=== PATIENT | female | born 1935 | race Caucasian/White ===

== ENCOUNTER 2016-09-12 06:01 | Inpatient (IN) | payer OTHER ==
[2016-08-27 10:19] LABS: % IMMATURE GRANULYOCYTES 0.4 % (0.0-1.1); ABSOLUTE IMMATURE GRANULOCYTES 0.03 10^3/uL (0.00-0.10); ADD DIFF? NO; ADD MORPH? NO; ADD SCAN? NO; ATYPICAL LYMPHOCYTE FLAG 10 (0-99); FRAGMENT RBC FLAG 0 (0-99); HEMATOCRIT 49.3 % (38.0-47.0); LEFT SHIFT FLG 0 (0-99); LIPEMIA HEMOLYSIS FLAG 90 (0-99); MEAN CELL HEMOGLOBIN 31.1 pg (27.9-34.1); MEAN CELL HEMOGLOBIN CONCENTR. 34.5 g/dL (32.4-36.7); MEAN CELL VOLUME 90.1 fL (81.5-99.8); MEAN PLATELET VOLUME 9.4 fL (8.7-11.7); PLATELET CLUMPS FLAG 0 (0-99); PLATELET COUNT 253 10^3/uL (150-400); RED BLOOD CELL COUNT 5.47 10^6/uL (4.18-5.33); RED CELL DISTRIBUTION WIDTH 12.5 % (11.5-15.2)
[2016-08-27 10:45] LABS: ANION GAP 11 mEq/L (8-16); CALCIUM 10.4 mg/dL (8.5-10.4); CARBON DIOXIDE 29 mEq/l (22-31); CHLORIDE 102 mEq/L (97-110); CREATININE 0.8 mg/dL (0.6-1.0); GLOMERULAR FILTRATION RATE > 60; GLUCOSE 114 mg/dL (70-100); POTASSIUM 4.5 mEq/L (3.5-5.2); SODIUM 142 mEq/L (134-144)
[~2016-09-12 06:01] MED LIST: ACETAMINOPHEN 325 MG TAB PO ONE; CEFAZOLIN 2 GM/DEXTR 100 ML IV ONE; CHLORHEXIDINE GLUC HIBICLENS 118 ML BTL TP ONE; DEXAMETHASONE 4 MG/ML VIAL IVP ONE; FAMOTIDINE 20 MG TAB PO ONE; ROPI/epiNEPH/KETOROLAC JOINT COCKTAIL IU ONE; TRANEXAMIC ACID 3,000 MG in NS 50 ML IRR ONE
[2016-09-12] MEDS ORDERED: FAMOTIDINE 20 MG TAB ONE (06:22)
[2016-09-12] MEDS ORDERED: DEXAMETHASONE 4 MG/ML VIAL ONE (06:22)
[2016-09-12] MEDS ORDERED: CEFAZOLIN 2 GM/DEXTROSE/100 ML BAG IV ONE (06:23)
[2016-09-12] MEDS ORDERED: ACETAMINOPHEN 325 MG TAB ONE (06:23)
[2016-09-12] MEDS ORDERED: LIDOCAINE 1% 5 ML SDV ONE (06:23)
[2016-09-12] MEDS ORDERED: LR 1,000 ML IV ONE (06:40)
[2016-09-12] MEDS ORDERED: LIDOCAINE 1% 5 ML SDV ID PRN (06:40)
[2016-09-12] MEDS ORDERED: TRANEXAMIC ACID 3,000 MG/50 ML BAG IRR ONE (07:08)
[2016-09-12] MEDS ORDERED: VANCOMYCIN 1 GM VIAL IV ONE (07:08)
[2016-09-12] MEDS ORDERED: fentaNYL 100 MCG/2 ML INJ ONE (07:24)
[2016-09-12] MEDS ORDERED: PROPOFOL/EMULSION 500 MG/50 ML BOTTLE IV ONE (07:24)
[2016-09-12] MEDS ORDERED: ONDANSETRON 4 MG/2 ML VIAL ONE (07:27)
[2016-09-12] MEDS ORDERED: METOCLOPRAMIDE 10 MG/2 ML VIAL ONE (07:27)
[2016-09-12] MEDS ORDERED: MIDAZOLAM 2 MG/2 ML VIAL ONE (07:55)
[2016-09-12] MEDS ORDERED: PHARMACY PAIN CONSULT 1 EA MISC PRN (09:32)
[2016-09-12] MEDS ORDERED: ONDANSETRON 4 MG/2 ML VIAL IVP PRN (09:32)
[2016-09-12] MEDS ORDERED: ONDANSETRON DISINTEGRATING 4 MG TAB PO PRN (09:32)
[2016-09-12] MEDS ORDERED: PROMETHAZINE HCL 25 MG SUPPR PR PRN (09:32)
[2016-09-12] MEDS ORDERED: BISACODYL 10 MG SUPP PR PRN (09:32)
[2016-09-12] MEDS ORDERED: LACTULOSE 20 GM/30 ML UDCUP PO PRN (09:32)
[2016-09-12] MEDS ORDERED: METOCLOPRAMIDE 10 MG/2 ML VIAL IVP PRN (09:32)
[2016-09-12] MEDS ORDERED: CYCLOBENZAPRINE 10 MG TAB PO PRN (09:32)
[2016-09-12] MEDS ORDERED: MAGNESIUM HYDROXIDE 30 ML UDCUP PO PRN (09:32)
[2016-09-12] MEDS ORDERED: POLYETHYLENE GLYCOL 3350 17 GM PKT PO PRN (09:32)
[2016-09-12] MEDS ORDERED: DIPHENOXYLATE/ATROPINE LOMOTIL 1 TAB PO PRN (09:32)
[2016-09-12] MEDS ORDERED: diphenhydrAMINE 25 MG CAP PO PRN (09:32)
[2016-09-12] MEDS ORDERED: TEMAZEPAM 15 MG CAP PO PRN (09:32)
--- NOTE | 2016-09-12 09:32 | POSTOPPROG ---
Post Op Note Date of Operation: 09/12/16 Surgeon: Pernell Carpenter Application Support Administrator: shani carpenter Anesthesiologist: dr. landa Anesthesia: Spinal, Other (Specify) Pre-op Diagnosis: left knee OA Post-op Diagnosis: same Indication: left knee pain due to OA that failed conservative measures Procedure: L TKA Findings: severe knee OA Inf/Abcess present in the surg proc area at time of surgery?: No EBL: 50-100
[2016-09-12] MEDS ORDERED: ROPIVACAINE HCL 150 MG/30 ML INJ ONE (09:45)
[2016-09-12] MEDS ORDERED: LR 1,000 ML IV SCH (10:00)
[2016-09-12] MEDS: HYDROCODONE/APAP 10/325 TAB PO PRN ×2 (12:52→20:12)
[2016-09-12] MEDS ORDERED: hydrALAZINE 20 MG/ML VIAL IVP PRN (14:19)
--- NOTE | 2016-09-12 14:19 | SOAPPROG ---
HUSSAIN Progress Note Assessment/Plan: Assessment:Bp 160/100 when I assessed. pain needs being met Plan:hydralazine 10 mg iv once if bP>180/110 for more than 30 minutes 09/12/16 14:16 Objective: Vital Signs Temp Pulse Resp BP Pulse Ox 35.9 C L 72 18 152/92 H 96 09/12/16 14:00 09/12/16 14:00 09/12/16 14:00 09/12/16 14:00 09/12/16 14:00 Laboratory Results 08/27/16 09:56 08/27/16 09:56 09/11/16 09/12/16 09/13/16 05:59 05:59 05:59 Intake Total 835 Output Total 30 Balance 805 - Pending Discharge Pending Discharge Within 24 Hours: No Pending Discharge Within 48 Hours: No ICD10 Worksheet Patient Problems: Problems Problem Status Onset Osteoarthritis, knee Acute - ICD10 Problem Qualifiers (1) Osteoarthritis, knee Qualifiers: Osteoarthritis type: O Laterality: L
[2016-09-12] MEDS: ceFAZolin 2 GM/DEXTROSE 100 ML IV SCH ×2 (16:46→23:50)
[2016-09-12] MEDS: WARFARIN SODIUM 5 MG TAB PO SCH (16:46)
[2016-09-12] MEDS: FAMOTIDINE 20 MG TAB PO SCH (20:13)
[2016-09-12] MEDS: ATORVASTATIN CALCIUM 10 MG TAB PO SCH (20:14)
[2016-09-12] MEDS: SENNOSIDES/DOCUSATE SODIUM TAB PO SCH (20:14)
[2016-09-13] MEDS: HYDROCODONE/APAP 10/325 TAB PO PRN ×6 (01:06→23:03)
--- NOTE | 2016-09-13 04:36 | GOP ---
[f rep st] OPERATIVE REPORT DATE OF OPERATION: SURGEON: Agnieszka Gatica MD HI TEACHER: RACHEL Feliz. ANESTHESIA: Spinal. PREOPERATIVE DIAGNOSIS: Left knee osteoarthritis. POSTOPERATIVE DIAGNOSIS: Left knee osteoarthritis. PROCEDURE PERFORMED: Left total knee arthroplasty. FINDINGS: ESTIMATED BLOOD LOSS: 30 cc. INDICATIONS: This is a 81-year-old female with severe and progressive pain and deformity of the her knee unresponsive to conservative care. Risks and benefits of the surgical intervention were expla ined in detail. DESCRIPTION OF PROCEDURE: The patient was brought to the operative room and placed on the table in the supine position. Spinal anesthesia was induced without difficulty. A pneumatic tourniquet was applied about the left proximal thigh, and the leg was prepped and draped in a sterile fashion. The leg oseguera was applied. After exsanguination by elevation the tourniquet was inflated to 75 mm of mercury. Incision was made anterior medial from the tibial tuberosity to a point 2 cm proximal to the superio r pole of the patella. Medial parapatellar arthrotomy was carried out from the superior pole of the patella and posteriorly in line with the fibers of the Type II VMO. The medial collateral ligament was elevated and the infrapatellar fat pad was resected. The patella was everted and the articular surface was excised. A 32 mm patellar button was placed. The distal femoral guide hole was drilled and the 6 degree alignment justyna was placed. A 10 mm distal femoral cut was made without difficulty. Attention was turned to the tibia and a standard 9 mm cut based on the lateral condyle was performed . The tibial articular surface was excised without difficulty. Attention was turned back to the femur and a size 4 femoral cutting block was positioned. Anterior, posterior, and chamfer cuts were made, followed by the intercondylar box cut. The knee was extended and the remnants of the medial and lateral meniscus were excised. The posteri or capsule was injected with ropivacaine, epinephrine and Toradol. A size 4 tibial tray was positio macie. Trial reduction was then carried out. There was excellent range of motion, alignment, and sta bility using the 9 mm polyethylene. All trials were then removed. The joint was thoroughly irrigated and carefully dried. Two packages of cement and 2 grams of vancomycin were mixed in the vacuum mixer and placed on the fixation surfa williams of all surfaces of the components. The components were implanted and all excess cement was thor oughly removed. The permanent 9 mm polyethylene was placed without difficulty. The tourniquet was deflated and all bleeders were coagulated. The wound was thoroughly irrigated an d closed using interrupted sutures of 2-0 Vicryl for the joint capsule. The subcu was closed with 3 -0 Vicryl and the skin with 4-0 Monocryl. Dermabond and Steri-Strips were applied followed by a com pressive dressing. The patient was then moved from the operating room to the recovery room in good condition, having tolerated the procedure well. PATHOLOGY: Severe tricompartmental osteoarthritis. /[id number]/MODL
[2016-09-13 05:33] LABS: HEMOGLOBIN 14.3 g/dL (12.6-16.3)
[2016-09-13 05:42] LABS: INR 1.03 (0.83-1.16); PROTIME(PATIENT) 13.4 SEC (12.0-15.0)
[2016-09-13 05:44] LABS: ANION GAP 9 mEq/L (8-16); CALCIUM 9.6 mg/dL (8.5-10.4); CARBON DIOXIDE 27 mEq/l (22-31); CHLORIDE 104 mEq/L (97-110); CREATININE 0.7 mg/dL (0.6-1.0); GLOMERULAR FILTRATION RATE > 60; GLUCOSE 106 mg/dL (70-100); SODIUM 140 mEq/L (134-144)
[2016-09-13] MEDS ORDERED: HYDROCHLOROTHIAZIDE PO SCH (09:00)
[2016-09-13] MEDS ORDERED: LOSARTAN PO SCH (09:00)
--- NOTE | 2016-09-13 09:14 | SOAPPROG ---
SOAP Progress Note Assessment/Plan: Assessment: Patient is doing well POD 1 s/p L TKA Pain management: pain is well controlled on oral pain meds. VTE ppx: recommend coumadin and lovenox for 3 weeks, cont GINA and SCDs Anemia: level is expected initially postop. Asymptomatic. Continue to monitor D/c planning: d/c to home today pending release from PT Plan: 09/13/16 09:12 Subjective: Angelica is doing well today, denies SOB ,chest pain and N/V. states moderate pain, but resting comfortably today Objective: Vital Signs Temp Pulse Resp BP Pulse Ox 36.8 C 86 18 155/81 H 93 09/13/16 03:39 09/13/16 07:51 09/13/16 07:51 09/13/16 07:51 09/13/16 07:51 Laboratory Results 09/13/16 04:29 09/13/16 04:29 09/12/16 09/13/16 09/14/16 05:59 05:59 05:59 Intake Total 2859 Output Total 1030 Balance 1829 PT 13.4 SEC (12.0-15.0) 09/13/16 04:29 INR 1.03 (0.83-1.16) 09/13/16 04:29 LLE: incision dressing is clean and dry, NVI, +pf/df ICD10 Worksheet Patient Problems: Problems Problem Status Onset Osteoarthritis, knee Acute Primary localized osteoarthritis of left knee Acute
[2016-09-13] MEDS: ENOXAPARIN 40 MG/0.4 ML SYR SC SCH (09:45)
[2016-09-13] MEDS: SENNOSIDES/DOCUSATE SODIUM TAB PO SCH ×2 (09:45→19:55)
[2016-09-13] MEDS: HYDROCHLOROTHIAZIDE 12.5 MG CAP PO SCH (09:46)
[2016-09-13] MEDS: LOSARTAN POTASSIUM 50 MG TAB PO SCH (09:46)
[2016-09-13] MEDS: FAMOTIDINE 20 MG TAB PO SCH ×2 (09:46→19:55)
--- NOTE | 2016-09-13 09:46 | GDS ---
[f rep st] DISCHARGE SUMMARY ADMISSION DIAGNOSIS: Left knee osteoarthritis. DISCHARGE DIAGNOSIS: Left knee osteoarthritis. PROCEDURE: Left total knee arthroplasty. VTE PROPHYLAXIS: Coumadin and Lovenox recommended. BRIEF DESCRIPTION OF HOSPITAL STAY: Patient was admitted for an elective joint arthroplasty. The p atient tolerated the procedure well and has passed physical therapy. The patient was given appropri ate antibiotic prophylaxis and venous thromboembolism prophylaxis. The patient's pain was well cont rolled on oral pain medication, patient was holding down food, and had urinated. Decision was made to discharge the patient. The patient was given post-operative prescriptions pre-operatively. PLAN: Please follow up with Dr. Gatica's office as scheduled October 11 at 10:45 a.m. /[id number]/MODL
[2016-09-13] MEDS: WARFARIN SODIUM 5 MG TAB PO SCH (15:46)
[2016-09-13] MEDS: ATORVASTATIN CALCIUM 10 MG TAB PO SCH (19:55)
[2016-09-14] MEDS: HYDROCODONE/APAP 10/325 TAB PO PRN ×3 (03:22→09:30)
[2016-09-14 05:11] LABS: HEMATOCRIT 40.2 % (38.0-47.0); HEMOGLOBIN 13.2 g/dL (12.6-16.3)
[2016-09-14 05:50] LABS: INR 1.23 (0.83-1.16); PROTIME(PATIENT) 15.5 SEC (12.0-15.0)
[2016-09-14 08:38] VITALS: RESP 18
[2016-09-14] MEDS: HYDROCHLOROTHIAZIDE 12.5 MG CAP PO SCH (09:25)
[2016-09-14] MEDS: SENNOSIDES/DOCUSATE SODIUM TAB PO SCH (09:25)
[2016-09-14] MEDS: ENOXAPARIN 40 MG/0.4 ML SYR SC SCH (09:25)
[2016-09-14] MEDS: FAMOTIDINE 20 MG TAB PO SCH (09:26)
[2016-09-14] MEDS: LOSARTAN POTASSIUM 50 MG TAB PO SCH (09:26)
[2016-09-14 11:30] VITALS: BP 104/75; PULSE 79; TEMP 98; O2SAT 93
--- NOTE | 2016-09-14 12:23 | SOAPPROG ---
SOAP Progress Note Assessment/Plan: Assessment: Patient is doing well POD 2 s/p L TKA Pain management: pain is well controlled on oral pain meds. VTE ppx: recommend coumadin and lovenox for 3 weeks, cont GINA and SCDs Anemia: level is expected initially postop. Asymptomatic. Continue to monitor D/c planning: d/c to home today pending release from PT Plan: 09/13/16 09:12 09/14/16 12:22 Subjective: Angelica is doing well today, pain is improved, although present. Objective: Vital Signs Temp Pulse Resp BP Pulse Ox 36.7 C 79 18 104/75 93 09/14/16 11:28 09/14/16 11:28 09/14/16 11:28 09/14/16 11:28 09/14/16 11:28 Laboratory Results 09/14/16 04:30 09/13/16 04:29 09/13/16 09/14/16 09/15/16 05:59 05:59 05:59 Intake Total 2859 2370 Output Total 1030 700 Balance 1829 1670 PT 15.5 SEC (12.0-15.0) H 09/14/16 04:30 INR 1.23 (0.83-1.16) H 09/14/16 04:30 dressing is clean and dry ICD10 Worksheet Patient Problems: Problems Problem Status Onset Osteoarthritis, knee Acute Primary localized osteoarthritis of left knee Acute
== END 2016-09-14 16:19 | disposition home or self-care (01) | DRG 470 ==
LOC: F3N 06:01
PROVIDERS: ADMIT Orthopaedic Surgery; ATTEND Orthopaedic Surgery
PROC: 0SRD0J9 Replacement of Left Knee Joint with Synthetic Substitute, Cemented, Open Approach (ICD-10-PCS; principal; 2016-09-12 08:15)
DX: M17.12 Unilateral primary osteoarthritis, left knee (principal)
CPT/HCPCS: 90732-PO; 93005-PO; 97116-GP; 97161-GP; 97165-GO; 97530-GP; 97535-GO; C1713; G0009-PO; G0463-PO; G8978-GP-CK; G8979-GP-CI; G8980-GP-CI; G8987-GO-CJ; G8988-GO-CI; J0171; J0690; J1100; J1650; J1885; J2250; J2405; J2704; J2765; J2795; J3010; J3370

== ENCOUNTER 2017-04-30 13:57 | Emergency (ER) | payer OTHER ==
--- NOTE | 2017-04-30 15:14 | CPEKG ---
Heart Rate: 93 RR Interval: 645 P-R Interval: 156 QRSD Interval: 88 QT Interval: 368 QTC Interval: 458 P [place]: 50 QRS [place]: -47 T Wave [place]: 7 EKG Severity - ABNORMAL ECG - EKG Impression: SINUS RHYTHM EKG Impression: LEFT ANTERIOR FASCICULAR BLOCK Electronically Signed By: Destinee Sorenson 30-Apr-2017 22:22:43
[2017-04-30 15:32] LABS: % IMMATURE GRANULYOCYTES 0.7 % (0.0-1.1); ABSOLUTE IMMATURE GRANULOCYTES 0.08 10^3/uL (0.00-0.10); ADD DIFF? NO; ADD MORPH? NO; ADD SCAN? NO; ATYPICAL LYMPHOCYTE FLAG 0 (0-99); FRAGMENT RBC FLAG 0 (0-99); HEMATOCRIT 50.3 % (38.0-47.0); HEMOGLOBIN 17.4 g/dL (12.6-16.3); LEFT SHIFT FLG 0 (0-99); LIPEMIA HEMOLYSIS FLAG 90 (0-99); MEAN CELL HEMOGLOBIN 30.4 pg (27.9-34.1); MEAN CELL HEMOGLOBIN CONCENTR. 34.6 g/dL (32.4-36.7); MEAN CELL VOLUME 87.8 fL (81.5-99.8); MEAN PLATELET VOLUME 9.2 fL (8.7-11.7); PLATELET CLUMPS FLAG 0 (0-99); PLATELET COUNT 226 10^3/uL (150-400); RED BLOOD CELL COUNT 5.73 10^6/uL (4.18-5.33); RED CELL DISTRIBUTION WIDTH 13.2 % (11.5-15.2)
[2017-04-30 15:38] LABS: ANION GAP 12 mEq/L (8-16); CALCIUM 10.4 mg/dL (8.5-10.4); CARBON DIOXIDE 28 mEq/l (22-31); CHLORIDE 103 mEq/L (97-110); CREATININE 0.7 mg/dL (0.6-1.0); GLOMERULAR FILTRATION RATE > 60; GLUCOSE 108 mg/dL (70-100); POTASSIUM 3.9 mEq/L (3.5-5.2); SODIUM 143 mEq/L (134-144)
[2017-04-30 15:45] LABS: INR 0.86 (0.83-1.16); PROTIME(PATIENT) 11.9 SEC (12.0-15.0)
[2017-04-30] MEDS ORDERED: LOSARTAN/HCTZ 50/12.5 1 TAB PO ONE (15:45)
[2017-04-30 15:46] LABS: APTT 24.4 SEC (23.0-38.0)
[2017-04-30 15:49] LABS: CREATINE KINASE-MB FRACTION 1.16 ng/mL (0.00-3.19); TROPONIN I < 0.012 ng/mL (0.000-0.034)
--- NOTE | 2017-04-30 15:51 | EDPHY ---
H & P Time Seen by Provider: 04/30/17 15:14 HPI/ROS: HPI High blood pressure comma feeling lightheaded and foggy. 82-year-old female by private vehicle. This patient has a history of hypertension. She takes losartan/HCTZ 100 mg/12.5 mg daily. She reports that since Saturday she has been feeling foggy in her head and mildly lightheaded. She denies this is worse with physical exertion or when standing from a prolonged sitting position. She states that she has not fainted or come close to fainting. She denies any other associated symptoms. She went to her primary care physician, Dr. Tab Fontenot, because her blood pressure was elevated today. Her blood pressure in his office was 230 systolic and she was told to come to the emergency department for evaluation. ROS: Constitutional: No fever, no chills. As above. Eyes: No discharge. No changes in vision. ENT: No sore throat. No nasal congestion or rhinorrhea. Respiratory: No cough. No shortness of breath. Cardiac: No chest pain, no palpitations. Gastrointestinal: No abdominal pain, no vomiting, no diarrhea. Genitourinary: No hematuria. No dysuria or increased frequency with urination. Musculoskeletal: No back pain. No neck pain. No myalgias or arthralgias. Skin: No rashes. Neurological: No headache. No focal weakness or altered sensation. Past medical history: Hypertension, right knee surgery. As above. Social history: Nonsmoker. Here by herself. No alcohol. Physical Exam: General Appearance: Alert, no distress. This patient is responding to questions appropriately and in full sentences. This patient appears well- hydrated and well-nourished. Eyes: Pupils equal and round no pallor or injection. No lid edema, erythema or injection. No photophobia. No nystagmus. Respiratory: There are no retractions, lungs are clear to auscultation with good air movement bilaterally. Cardiovascular: Regular rate and rhythm. No murmur. Gastrointestinal: Abdomen is soft and nontender, no masses, bowel sounds normal. No focal tenderness at McBurney's point. No Light sign. Neurological: Motor sensory function is grossly intact. Cranial nerves are normal. Gait is normal. She is alert and oriented to person place and time. She response to questions appropriately. She is very sharp, precise and quick thinking. No evidence of encephalopathy. Skin: Warm and dry, no rashes. Musculoskeletal: Neck is supple and nontender. Extremities are symmetrical. All joints range without pain or impingement. Psychiatric: No agitation. No depression. Database: EKG: EKG time is 3:12 p.m.; EKG shows a narrow complex normal sinus rhythm with a ventricular rate of 93. Left anterior fascicular block noted. The ME, QRS, QT intervals are within normal limits. There are no ST-T wave changes indicative of ischemic or injury pattern. No evidence of right heart strain. Interpreted by me. Imaging: Chest x-ray PA and lateral; the cardiac mediastinal silhouette is unremarkable. No evidence of infiltrate or pneumothorax. No acute cardiopulmonary disease process noted. Interpreted by me. Procedures: Emergency department course: IV was placed in triage. Vital signs reviewed. Blood pressure currently at 3: 50 p.m. is 211/112. EKG obtained and reviewed by myself. She will be given a 50 mg/12.5 mg dose of losartan/HCTZ. 5:00 p.m., patient re-evaluated. She is resting comfortably at this time. Repeat neurologic Assessment is nonfocal. She is sharp and clear with her thought processes. Denies any symptoms. Has no complaints. Blood pressure at this time is 175/93. Her workup has been reassuring. I feel hypertensive encephalopathy, emergency is unlikely. She feels comfortable going home. She will follow up with her primary care physician, Dr. Tab Fontenot, tomorrow for re- evaluation and further management of her hypertension. Return to emergency department precautions were reviewed with her. All of her questions were answered. She was discharged in good condition. Differential Diagnosis: The differential diagnosis on this patient includes but is not limited to hypertensive urgency. Hypertensive emergency unlikely. This represents a partial list of diagnoses considered. These considerations are based on history , physical exam, past history, reassessment and diagnostic testing. Smoking Status: Former smoker Constitutional: Initial Vital Signs Temperature (C) 36.5 C 04/30/17 14:15 Heart Rate 96 04/30/17 14:15 Respiratory Rate 17 04/30/17 14:15 Blood Pressure 186/106 H 04/30/17 14:15 O2 Sat (%) 93 04/30/17 14:15 O2 Delivery Mode Room Air Allergies/Adverse Reactions: oxycodone [From Percocet] Allergy (Mild, Verified 04/30/17 14:13) Other-Enter Comments Home Medications: Medication Instructions Recorded Simvastatin [Zocor 20 mg] 20 mg PO HS 07/26/12 Cholecalciferol Vit D3 [Vitamin D3 5,000 units PO DAILY 08/13/16 2000 units tab (OTC)] Losartan/Hydrochlorothiazide 1 tab PO DAILY 08/13/16 [Hyzaar 100-12.5 Tablet] Cyclobenzaprine [Flexeril 10 MG 10 mg PO Q8HRS PRN #0 tab 09/13/16 (*)] Polyethylene Glycol 3350 [Miralax 17 gm PO DAILY PRN #0 pkt 09/13/16 17 gm (*)] Sennosides/Docusate Sodium 1 - 2 tab PO BID #0 tab 09/13/16 [Senokot-S] Aspirin 81mg (*) 04/30/17 Medical Decision Making - Diagnostics Imaging Results: Imaging Impressions Chest X-Ray 04/30/17 15:18 Impression: Borderline-cardiomegaly with no evidence of congestive heart failure. - Data Points Laboratory Results: Laboratory Results 04/30/17 15:10 04/30/17 15:10 04/30/17 04/30/17 04/30/17 15:10 15:10 15:10 WBC 10.72 10^3/uL H 10^3/uL (3.80-9.50) RBC 5.73 10^6/uL H 10^6/uL (4.18-5.33) Hgb 17.4 g/dL H g/dL (12.6-16.3) Hct 50.3 % H % (38.0-47.0) MCV 87.8 fL fL (81.5-99.8) MCH 30.4 pg pg (27.9-34.1) MCHC 34.6 g/dL g/dL (32.4-36.7) RDW 13.2 % % (11.5-15.2) Plt Count 226 10^3/uL 10^3/uL (150-400) MPV 9.2 fL fL (8.7-11.7) Neut % (Auto) 70.6 % % (39.3-74.2) Lymph % (Auto) 19.9 % % (15.0-45.0) [place] % (Auto) 7.0 % % (4.5-13.0) Eos % (Auto) 1.4 % % (0.6-7.6) Baso % (Auto) 0.4 % % (0.3-1.7) Nucleat RBC Rel Count 0.0 % % (0.0-0.2) Absolute Neuts (auto) 7.57 10^3/uL H 10^3/uL (1.70-6.50) Absolute Lymphs (auto) 2.13 10^3/uL 10^3/uL (1.00-3.00) Absolute Monos (auto) 0.75 10^3/uL 10^3/uL (0.30-0.80) Absolute Eos (auto) 0.15 10^3/uL 10^3/uL (0.03-0.40) Absolute Basos (auto) 0.04 10^3/uL 10^3/uL (0.02-0.10) Absolute Nucleated RBC 0.00 10^3/uL 10^3/uL (0-0.01) Immature Gran % 0.7 % % (0.0-1.1) Immature Gran # 0.08 10^3/uL 10^3/uL (0.00-0.10) PT 11.9 SEC L SEC (12.0-15.0) INR 0.86 (0.83-1.16) APTT 24.4 SEC SEC (23.0-38.0) Sodium 143 mEq/L mEq/L (134-144) Potassium 3.9 mEq/L mEq/L (3.5-5.2) Chloride 103 mEq/L mEq/L (97-110) Carbon Dioxide 28 mEq/l mEq/l (22-31) Anion Gap 12 mEq/L mEq/L (8-16) BUN 17 mg/dL mg/dL (7-23) Creatinine 0.7 mg/dL mg/dL (0.6-1.0) Estimated GFR > 60 Glucose 108 mg/dL H mg/dL (70-100) Calcium 10.4 mg/dL mg/dL (8.5-10.4) Creatine Kinase 35 IU/L IU/L (0-156) CK-MB (CK-2) Fraction 1.16 ng/mL ng/mL (0.00-3.19) Troponin I < 0.012 ng/mL ng/mL (0.000-0.034) NT-Pro-B Natriuret Pep 489 pg/mL H pg/mL (0-450) Medications Given: Discontinued Medications HCTZ/Losartan Potassium (Hyzaar 50/12.5) 1 tab PO EDNOW ONE Stop: 04/30/17 15:46 Last Admin: 04/30/17 16:12 Dose: 1 tab Departure - Departure Disposition: Home, Routine, Self-Care Clinical Impression: Uncontrolled hypertension Condition: Good Instructions: Hypertension (ED) Additional Instructions: Read and follow provided instructions. Follow-up with your primary care physician, Dr. Tab Fontenot or Dr. Eva Tan tomorrow as discussed for re-evaluation and further management of your high blood pressure. Take your medication only as prescribed. Return to the emergency department for worsening symptoms or other serious concerns. Referrals: Tony Fontenot MD [Medical Doctor] - As per Instructions
[2017-04-30 16:35] VITALS: RESP 16
[2017-04-30 17:39] VITALS: BP 165/112; PULSE 98; TEMP 98.6; O2SAT 93
== END 2017-04-30 17:25 | disposition home or self-care (01) ==
DX: I10 Essential (primary) hypertension (principal); Z79.82 Long term (current) use of aspirin; Z87.891 Personal history of nicotine dependence